=== PATIENT | male | born 1995 | race Caucasian/White ===

== ENCOUNTER → 2021-05-21 11:49 | Outpatient (CLI) | payer OTHER, SELFPAY ==
[2021-05-21 20:31] LABS: Hepatitis B Surface Antigen NEGATIVE s/c (NEGATIVE)
[2021-05-21 20:49] LABS: HIV 1 & 2 Ab/Ag 4th Gen Combo NEGATIVE (NEGATIVE); Hep C Virus Ab w/Reflex Quant NEGATIVE s/c (NEGATIVE)
[2021-05-23 07:30] LABS: HSV 2 IGG AB < 0.91 index (0.00-0.90); HSV1IGG < 0.91 index (0.00-0.90); RPR Screen Non Reactive (Non Reactive)
[2021-05-24 01:44] LABS: Chlamydia trachomatis NAA Negative (Negative); Neisseria gonorrhoeae NAA Negative (Negative)
== END ==
PROVIDERS: PCP Family Medicine; Visit Provider Physician Assistant
DX: Z11.3 Encounter for screening for infections with a predominantly sexual mode of transmission (principal)
CPT/HCPCS: 86592; 86695; 86696; 86803; 87340; 87389; 87491; 87591

== ENCOUNTER → 2024-03-05 12:37 | Outpatient (CLI) | payer OTHER, SELFPAY ==
[2024-03-05 19:29] LABS: Add Manual Diff / Slide Review NO; Basophils Absolute Auto 100 /uL (0-100); Basophils Percent Auto 1.2 % (0-2); Eosinophils Absolute Auto 300 /uL (0-450); Hematocrit 45.1 % (41-53); Hemoglobin 15.4 g/dL (13.5-17.5); Lymphocytes Absolute Auto 1600 /uL (1100-4500); Lymphocytes Percent Auto 29.9 % (25-40); Mean Corpuscular HGB Conc 34.1 % (30-36); Mean Corpuscular Hemoglobin 31.1 PG (26-34); Mean Corpuscular Volume 91.2 fL (80-100); Monocytes Absolute Auto 400 /uL (0-900); Monocytes Percent Auto 8.3 % (3-14); Neutrophils Absolute Auto 2900 /uL (1500-7000); Neutrophils Percent Auto 55.6 % (50-75); Platelet Count 232 X10^3/uL (150-400); Red Blood Cell Count 4.95 X10^6/uL (4.5-5.9); Red Cell Distribution Width 13.1 % (11.6-14.8); White Blood Cell Count 5.3 X10^3/uL (4.5-11.0)
[2024-03-05 19:39] LABS: Alanine Aminotransferase 24 IU/L (<50); Albumin 4.9 g/dL (3.5-5.0); Albumin Globulin Ratio 1.6 (1.0-2.8); Alkaline Phosphatase 57 U/L (38-126); Aspartate Aminotransferase 30 IU/L (17-59); BUN Creatinine Ratio 17.8 (6-22); Bilirubin Total 0.9 mg/dL (0.2-1.3); Blood Urea Nitrogen 13 mg/dL (9-20); Calcium 9.4 mg/dL (8.4-10.2); Carbon Dioxide 27 mmol/L (22-32); Chloride 105 mmol/L (98-107); Estimated Glomerular Filt Rate > 60 mL/min (>60); Globulin 3.1 g/dL (1.7-4.1); Glucose 92 mg/dL (70-100); Potassium 4.5 mmol/L (3.4-5.1); Sodium 140 mmol/L (137-145)
[2024-03-05 19:58] LABS: Hemoglobin A1C% w Est Avg Glu 5.1 % (4.0-6.0)
[2024-03-05 20:10] LABS: TSH w/ Reflex to FT4 0.93 uIU/mL (0.47-4.68)
[2024-03-05 20:14] LABS: Ferritin 75 ng/mL (18-464)
[2024-03-05 21:37] LABS: Folate > 20.0 ng/mL (2.76-20.0); HEMOLYSIS 18 (0-50); Vitamin B12 701 pg/mL (239-931)
[2024-03-05 22:39] LABS: Urine N gonorrhoeae NOT DETECTED
[2024-03-05 22:51] LABS: Urine Chlamydia NOT DETECTED
[2024-03-08 02:06] LABS: HBsAg Screen Negative (Negative); Hepatitis A Antibody IgM Negative (Negative); Hepatitis B Core Antibody IgM Negative (Negative); Hepatitis C Antibody Non Reactive (Non Reactive)
[2024-03-08 17:10] LABS: HIV 1 & 2 Ab/Ag 4th Gen Combo NEGATIVE (NEGATIVE)
== END ==
PROVIDERS: PCP Physician Assistant; Visit Provider Family Medicine
DX: Z11.3 Encounter for screening for infections with a predominantly sexual mode of transmission (principal); R20.0 Anesthesia of skin; G62.9 Polyneuropathy, unspecified; B00.9 Herpesviral infection, unspecified
CPT/HCPCS: 80053; 80074; 82607; 82728; 82746; 83036; 84443; 85025; 86780; 87389; 87491; 87591